=== PATIENT | male | born 1955 | race Caucasian/White ===

== ENCOUNTER → 2025-05-26 13:13 | Outpatient (REF) | payer MEDICARE, SELFPAY | LOC: RAD 13:13 | PROVIDERS: ATTENDING PHYSICIAN Internal Medicine Critical Care Medicine | DX: R05.3 Chronic cough (principal); R06.02 Shortness of breath; F12.90 Cannabis use, unspecified, uncomplicated | CPT/HCPCS: 71046 ==

== ENCOUNTER → 2025-11-04 14:58 | Outpatient (REF) | payer MEDICARE, SELFPAY | LOC: MRI 3T 14:58 | PROVIDERS: ATTENDING PHYSICIAN Orthopaedic Surgery; FAMILY PHYSICIAN Family Medicine | DX: M17.11 Unilateral primary osteoarthritis, right knee (principal) | CPT/HCPCS: 73721 ==